=== PATIENT | male | born 1970 | race Caucasian/White ===

== ENCOUNTER 2018-10-10 15:40 | Emergency (ER) | payer SELFPAY ==
--- NOTE | 2018-10-10 17:49 | ER ---
Nurse's Notes [facility] Name: Sung Tamayo Age: 48 yrs Sex: Male : 1970 Arrival Date: 10/10/2018 Time: 15:41 Bed 12 Private MD: None, None Diagnosis: Zoster [herpes zoster] Presentation: 10/10 15:55 Presenting complaint: Patient states: RASH ON LEFT TEMPORAL/PARIETAL AREA. Transition bp of care: patient was not received from another setting of care. Onset of symptoms is unknown. Risk Assessment: Do you want to hurt yourself or someone else? Patient reports no desire to harm self or others. Initial Sepsis Screen: Does the patient meet any 2 criteria? No. Patient's initial sepsis screen is negative. Does the patient have a suspected source of infection? No. Patient's initial sepsis screen is negative. Care prior to arrival: None. 15:55 Method Of Arrival: Ambulatory bp 15:55 Acuity: COLBY 5 bp Triage Assessment: 15:56 General: Appears in no apparent distress. comfortable, Behavior is calm, cooperative, bp appropriate for age. Pain: Denies pain. Historical: - Allergies: 15:56 No Known Allergies; bp - Home Meds: 15:56 None [Active]; bp - PMHx: 15:56 None; bp - Immunization history:: Adult Immunizations unknown. - Social history:: Smoking status: Patient uses tobacco products, smokes one pack cigarettes per day. - Ebola Screening: : No symptoms or risks identified at this time. Screenin:35 Abuse screen: Denies threats or abuse. Denies injuries from another. Nutritional ss screening: No deficits noted. Tuberculosis screening: Never had TB. Fall Risk None identified. Assessment: 17:35 General: Appears uncomfortable, Behavior is calm, cooperative. Pain: Complains of pain ss in left ear, left cheek and left protestant Pain currently is 8 out of 10 on a pain scale. Quality of pain is described as burning, tender, Pain began 5 days ago Is continuous, Aggravated by palpation. Neuro: Level of Consciousness is awake, alert, obeys commands. Respiratory: Respiratory effort is even, unlabored, Denies cough, shortness of breath labored breathing, pain with respiration, pain with cough, pain with movement. EENT: Nares are clear Oral mucosa is moist. Throat is clear. Derm: Skin is intact, is healthy with good turgor, Skin is dry, Skin is pink, warm \T\ dry. normal. Derm: Rash noted that is vesicular, on left ear, left cheek and left protestant. Musculoskeletal: Range of motion: intact in all extremities. Vital Signs: 15:56 BP 150 / 94; Pulse 81; Resp 16; Temp 97.8; Pulse Ox 97% ; Weight 63.5 kg; Height 5 ft. bp 3 in. (160.02 cm); 15:56 Body Mass Index 24.80 (63.50 kg, 160.02 cm) bp ED Course: 15:41 Patient arrived in ED. mr 15:41 None, None is Private Physician. mr 15:56 Triage completed. bp 15:56 Arm band placed on. bp 17:34 Holger Guadalupe PA is PHCP. jr8 17:34 Ernesto Pickens MD is Attending Physician. jr8 17:35 Patient has correct armband on for positive identification. Bed in low position. Call ss light in reach. 17:39 Regine English, MARILYN is Primary Nurse. ss 18:07 No provider procedures requiring assistance completed. Patient did not have IV access ss during this emergency room visit. Administered Medications: 17:54 Drug: Demerol 50 mg Route: IM; Site: right deltoid; ss 18:08 Follow up: Response: No adverse reaction; Pain is decreased ss 17:54 Drug: Zofran 4 mg Route: PO; ss 18:07 Follow up: Response: No adverse reaction ss 17:54 Drug: Acyclovir 800 mg Route: PO; ss 18:07 Follow up: Response: Medication administered at discharge. Outcome: 17:48 Discharge ordered by . jr8 18:08 Discharged to home ambulatory. ss 18:08 Condition: good 18:08 Discharge instructions given to patient, family, Instructed on discharge instructions, follow up and referral plans. medication usage, Demonstrated understanding of instructions, follow-up care, medications, Prescriptions given X 3. 18:08 Patient left the ED. ss Signatures: Carmelita Means mr Regine English, RN RN Holger Guadalupe PA PA jr8 Edi Bowman RN RN bp
--- NOTE | 2018-10-10 17:49 | EDPHYS ---
Physician Documentation [facility] Name: Sung Tamayo Age: 48 yrs Sex: Male : 1970 Arrival Date: 10/10/2018 Time: 15:41 Bed 12 Private MD: None, None ED Physician Ernesto Pickens HPI: 10/10 17:45 This 48 yrs old Male presents to ER via Ambulatory with complaints of Skin jr8 Sore(s). 17:45 The patient's rash thought to be caused by an unknown cause. The rash is located on the jr8 face and scalp. The rash can be described as vesicular. Onset: The symptoms/episode began/occurred acutely, 5 day(s) ago. Associated signs and symptoms: Pertinent positives: burning sensation, Pain. Severity of symptoms: At their worst the symptoms were mild in the emergency department the symptoms are unchanged. The patient has not experienced similar symptoms in the past. The patient has not recently seen a physician. Historical: - Allergies: 15:56 No Known Allergies; bp - Home Meds: 15:56 None [Active]; bp - PMHx: 15:56 None; bp - Immunization history:: Adult Immunizations unknown. - Social history:: Smoking status: Patient uses tobacco products, smokes one pack cigarettes per day. - Ebola Screening: : No symptoms or risks identified at this time. ROS: 17:45 Eyes: Negative for injury, pain, redness, and discharge, ENT: Negative for injury, jr8 pain, and discharge, Neck: Negative for injury, pain, and swelling, Cardiovascular: Negative for chest pain, palpitations, and edema, Respiratory: Negative for shortness of breath, cough, wheezing, and pleuritic chest pain, Abdomen/GI: Negative for abdominal pain, nausea, vomiting, diarrhea, and constipation, Back: Negative for injury and pain, MS/Extremity: Negative for injury and deformity, Neuro: Negative for headache, weakness, numbness, tingling, and seizure. 17:45 Skin: Positive for rash, of the face and scalp. Exam: 17:45 Eyes: Pupils equal round and reactive to light, extra-ocular motions intact. Lids and jr8 lashes normal. Conjunctiva and sclera are non-icteric and not injected. Cornea within normal limits. Periorbital areas with no swelling, redness, or edema. ENT: Nares patent. No nasal discharge, no septal abnormalities noted. Tympanic membranes are normal and external auditory canals are clear. Oropharynx with no redness, swelling, or masses, exudates, or evidence of obstruction, uvula midline. Mucous membranes moist. Neck: Trachea midline, no thyromegaly or masses palpated, and no cervical lymphadenopathy. Supple, full range of motion without nuchal rigidity, or vertebral point tenderness. No Meningismus. Cardiovascular: Regular rate and rhythm with a normal S1 and S2. No gallops, murmurs, or rubs. Normal PMI, no JVD. No pulse deficits. Respiratory: Lungs have equal breath sounds bilaterally, clear to auscultation and percussion. No rales, rhonchi or wheezes noted. No increased work of breathing, no retractions or nasal flaring. Abdomen/GI: Soft, non-tender, with normal bowel sounds. No distension or tympany. No guarding or rebound. No evidence of tenderness throughout. Back: No spinal tenderness. No costovertebral tenderness. Full range of motion. MS/ Extremity: Pulses equal, no cyanosis. Neurovascular intact. Full, normal range of motion. Neuro: Awake and alert, GCS 15, oriented to person, place, time, and situation. Cranial nerves II-XII grossly intact. Motor strength 5/5 in all extremities. Sensory grossly intact. Cerebellar exam normal. Normal gait. 17:45 Skin: Patient has vesicular rash to left side of head including the scalp, ear, and left cheek extending to left neck. No crossing of midline. Sensitive to light touch. Vital Signs: 15:56 BP 150 / 94; Pulse 81; Resp 16; Temp 97.8; Pulse Ox 97% ; Weight 63.5 kg; Height 5 ft. bp 3 in. (160.02 cm); 15:56 Body Mass Index 24.80 (63.50 kg, 160.02 cm) bp MDM: 17:34 Patient medically screened. [facility] 17:45 Data reviewed: vital signs, nurses notes, and as a result, I will discharge patient. jr8 Data interpreted: Pulse oximetry: on room air is 97 %. Interpretation: normal. Counseling: I had a detailed discussion with the patient and/or guardian regarding: the historical points, exam findings, and any diagnostic results supporting the discharge/admit diagnosis, the need for outpatient follow up, a family practitioner, to return to the emergency department if symptoms worsen or persist or if there are any questions or concerns that arise at home. Response to treatment: the patient's symptoms have markedly improved after treatment. Administered Medications: 17:54 Drug: Demerol 50 mg Route: IM; Site: right deltoid; ss 18:08 Follow up: Response: No adverse reaction; Pain is decreased ss 17:54 Drug: Zofran 4 mg Route: PO; ss 18:07 Follow up: Response: No adverse reaction ss 17:54 Drug: Acyclovir 800 mg Route: PO; ss 18:07 Follow up: Response: Medication administered at discharge. ss Disposition: 18:36 Co-signature as Attending Physician, Ernesto Pickens MD. rn Disposition: 10/10/18 17:48 Discharged to Home. Impression: Zoster [herpes zoster]. - Condition is Stable. - Discharge Instructions: Shingles. - Prescriptions for Tylenol- Codeine #3 300-30 mg Oral Tablet - take 2 tablets by ORAL route every 6 hours As needed; 20 tablet. Acyclovir 800 mg Oral Tablet - take 1 tablet by ORAL route 5 times per day for 10 days; 50 tablet. Prednisone 20 mg Oral Tablet - take 2 tablet by ORAL route once daily for 5 days; 10 tablet. - Medication Reconciliation Form, Thank You Letter, Antibiotic Education, Prescription Opioid Use form. - Work release form (10/10/18 19:54). mw2 - Follow up: Private Physician; When: 1 week; Reason: Recheck today's complaints, Continuance of care, Re-evaluation by your physician. - Problem is new. - Symptoms have improved. Signatures: Ernesto Pickens MD MD rn Smirch, Shelby, RN RN ss Roszak, Josh, PA PA jr8 Peltier, Brian, RN RN [place] mw2 Corrections: (The following items were deleted from the chart) 18:08 17:48 10/10/2018 17:48 Discharged to Home. Impression: Zoster [herpes zoster]. ss Condition is Stable. Forms are Medication Reconciliation Form, Thank You Letter, Antibiotic Education, Prescription Opioid Use. Follow up: Private Physician; When: 1 week; Reason: Recheck today's complaints, Continuance of care, Re-evaluation by your physician. Problem is new. Symptoms have improved. jr8
[2018-10-10] MEDS ORDERED: ONDANSETRON 4 MG (ODT) TAB ONE (18:04)
[2018-10-10] MEDS ORDERED: MEPERIDINE HCL 50 MG/ML AMP ONE (18:04)
[2018-10-10] MEDS ORDERED: ACYCLOVIR 400 MG TABLET ONE (18:04)
== END 2018-10-10 18:08 | disposition home or self-care (01) ==
LOC: ER 15:40
DX: B02.9 Zoster without complications (principal); F17.210 Nicotine dependence, cigarettes, uncomplicated
CPT/HCPCS: 96372; 99283; J2175